=== PATIENT | female | born 1980 | race Caucasian/White ===

== ENCOUNTER 2024-02-01 11:04 | Emergency (ER) | payer MEDICAID ==
[~2024-02-01] VITALS: Ht 175.3 cm; Wt 105.5 kg
[2024-02-01] MEDS: ketorolac trometh inj. 60 MG/2 ML VIAL IM ONE (11:40)
[2024-02-01] MEDS ORDERED: MELO-102 PO (12:13)
[2024-02-01] MEDS ORDERED: LIDO700A32 TOP (12:14)
[2024-02-01] MEDS: HYDROcodone/acetaminophen 5mg/325mg tablet PO ONE (12:59)
[2024-02-01 13:11] VITALS: BP 107/73; PULSE 87; RESP 16; TEMP 98.6; O2SAT 95
== END 2024-02-01 13:15 | disposition home or self-care (01) ==
LOC: ER 11:04
DX: S46.912A Strain of unspecified muscle, fascia and tendon at shoulder and upper arm level, left arm, initial encounter (principal); X58.XXXA Exposure to other specified factors, initial encounter; Y93.89 Activity, other specified; Y92.89 Other specified places as the place of occurrence of the external cause; Y99.8 Other external cause status
CPT/HCPCS: 73030; 96372; 99283; J1885; A4565